=== PATIENT | male | born 1975 | race Caucasian/White ===

== ENCOUNTER 2017-10-18 03:19 | Emergency (ER) | payer OTHER ==
[~2017-10-18] VITALS: Ht 190.5 cm; Wt 145.2 kg
[~2017-10-18 03:19] MED LIST: CIPRO500 M1 PO; DISULFIRAM PO; NAPROSYN500 MG PO; REVIA 50 MG TAB50 M1 PO
[2017-10-18] MEDS ORDERED: DIPHENHIST50 MG PO (03:49)
[2017-10-18] MEDS ORDERED: BACTRIM DS TAB1 EACH PO (03:49)
[2017-10-18 04:05] VITALS: BP 146/107
== END 2017-10-18 04:05 | disposition home or self-care (01) ==
LOC: M.ERS 03:19
DX: S00.86XA Insect bite (nonvenomous) of other part of head, initial encounter (principal); S10.96XA Insect bite of unspecified part of neck, initial encounter; S60.562A Insect bite (nonvenomous) of left hand, initial encounter; S60.561A Insect bite (nonvenomous) of right hand, initial encounter; W57.XXXA Bitten or stung by nonvenomous insect and other nonvenomous arthropods, initial encounter; Y93.89 Activity, other specified; Y92.89 Other specified places as the place of occurrence of the external cause; Y99.8 Other external cause status